=== PATIENT | male | born 1975 | race Caucasian/White ===

== ENCOUNTER 2016-12-27 22:52 | Observation (INO) | payer MEDICAID ==
[~2016-12-27] VITALS: Ht 177.8 cm; Wt 126.9 kg
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
--- NOTE | ~2016-12-27 | CON ---
PATIENT'S NAME: CRISTIAN SCHULTE [facility] AGE: 41 Y [address] ROOM: [facility] [place] [place], [place] [address] LOCATION: GPCU ADMIT DATE: 12/28/2016 Consultation DISCHARGE DATE: 12/29/2016 FAMILY PHYSICIAN: JOSE MARTIN FERNÁNDEZ MD ATTENDING PHYSICIAN: CHUCHO LEBRON co-signing physician 01/02/17 AO DATE OF CONSULTATION: 12/29/2016 REFERRING PHYSICIAN: Evonne Ang MD TIME AND DATE: 12/29/2016 at 12:45 p.m. CHIEF COMPLAINT: Unresponsive episode. HISTORY OF PRESENT ILLNESS: This is a 41-year-old male. History is obtained from the patient, his sister, and from the chart. He was playing with this daughter, getting ready to go to bed, watching television when he was observed to have stood up, he screamed, and then he was laid on the floor. Apparently, the patient was out about 20 minutes. EMS was called. His first memory is waking up in the ambulance. The chart says he was quite confused at that time. By the time he went to the ED, he was more alert and knowing the paramedics and those around him. Of note, he did have a lateral bites of his tongue. The patient had a previous event where he was at physical therapy and sitting with his sister when she was getting treatment. She heard him snoring and tried to wake him, but was unable to do so. [facility] and [facility] him pulseless and did do rounds of CPR on him. By the time EMS got there, he had carotid pulses, was transferred to the intensive care and intubated. He was given Narcan at that time without any response. His past medical history includes addiction issues with methamphetamine. He was recently admitted for anasarca with acute kidney failure, which was related to urinary retention, which is resolved. He does have an abnormal echocardiogram, which shows an EF of 55 with grade 1 diastolic dysfunction. He suffers from bipolar depression and anxiety. The patient states at the time of this incident, he was feeling well. REVIEW OF SYSTEMS: He denies any chest pain, shortness of breath, nausea, vomiting, diarrhea, or palpitations. He denies any headaches. Denies any head turning. Denies any dizziness. Denies any recent illness or travel. Denies any recent infections. Past medical history includes morbid obesity; bipolar disorder, which the PATIENT'S NAME: CRISTIAN SCHULTE [facility] AGE: 41 Y [address] ROOM: [id number] [place], [place] [address] LOCATION: GPCU ADMIT DATE: 12/28/2016 Consultation DISCHARGE DATE: 12/29/2016 FAMILY PHYSICIAN: JOSE MARTIN FERNÁNDEZ MD ATTENDING PHYSICIAN: CHUCHO LEBRON V patient sees a psychiatrist for; history of recent unresponsive episode, which was treated as a cardiac arrest; hypercholesterolemia; urinary retention; and per the patient he has a L5-S1 blow out on his MRI. He has sought advice for this, but Dr. Johns and Dr. Leal have refused the patient for a surgical option. Of note, the patient has gone cold turkey with many of his medications after his last hospitalization. He no longer takes his Xanax. He also has quit smoking. He has also quit taking his Seroquel. This was not at the advice of his psychiatrist, however, the patient just wanted to go cold turkey on these things. Regarding his medications, he does take tramadol regularly for his back pain. PAST SURGICAL HISTORY: Unremarkable. SOCIAL HISTORY: Significant for polysubstance abuse, that is distant. He was a pack-a-day smoker until he quit and he quit smoking after his last hospitalization. FAMILY HISTORY: Significant for seizures on both sides of the family. PHYSICAL EXAMINATION: VITAL SIGNS: His blood pressure is 150/70, heart rate 95, saturating 96% on room air, he is afebrile with respirations 16. GENERAL: Morbidly obese, middle-aged male, who appears anxious and fidgety. EYES: Pupils are equal and reactive to light and there is no nystagmus. ENT: No stridor. No lymphadenopathy. HEAD: Atraumatic and normocephalic. LUNGS: Clear to auscultation. HEART: Heart rate is regular with no murmurs, rubs, or gallops. ABDOMEN: Obese, soft, and nontender. NEUROLOGIC: Cranial nerves II through XII are intact. There is no focal deficits noted. The patient states he is about slightly weak on his extremities. His gait was observed and is normal gait. Slightly decreased muscle tone. DIAGNOSTIC DATA: MRI shows no infarct, hemorrhage, hydrocephalus, or mass in fact in short a normal MRI. His prolactin level was 5.2, however, this was drawn in a significant amount of time after the event. It is not a factor. He did have a negative CT/PE chest protocol also. ASSESSMENT AND PLAN: 1. Questionable seizure. The evidence supporting the seizure is his abrupt stoppage of his benzodiazepine, his tramadol ingestion, his lateral PATIENT'S NAME: CRISTIAN SCHULTE [facility] AGE: 41 Y [address] ROOM: [address] [address] LOCATION: GPCU ADMIT DATE: 12/28/2016 Consultation DISCHARGE DATE: 12/29/2016 FAMILY PHYSICIAN: JOSE MARTIN FERNÁNDEZ MD ATTENDING PHYSICIAN: CHUCHO LEBRON, and his family history of seizures. We will await the EEG reading to make a recommendation on starting the patient on an antiepileptic. 2. History of polysubstance abuse. The patient absolutely denies having used any substances and is supported by his sister. The patient and his sister were interviewed and asked appropriate questions. All questions were answered to the best my ability. The plan of care was coordinated with Dr. Caraballo. Thank you for this consult. VERITO LOMELI APRN FOR SHAR CARABALLO MD PP/modl /[id number] Corrrected co-signing physician 01/02/17 AO d: 12/29/16 1842 t: 01/10/17 1538, CONSULTATION REPORT
--- NOTE | ~2016-12-27 | NDGEN ---
PATIENT'S NAME: CRISTIAN SCHULTE [facility] AGE: 41 Y [address] ROOM: [address] [address] LOCATION: GPCU ADMIT DATE: 12/28/2016 Neurodiagnostics DISCHARGE DATE: 12/29/2016 FAMILY PHYSICIAN: Yuniel Bains MD ATTENDING PHYSICIAN: Romulo Lebron V PROCEDURE: ELECTROENCEPHALOGRAM DATE OF PROCEDURE: 12/29/2016 TYPE OF STUDY: EEG. TIME: 08:14 a.m. INDICATION: This is a 41-year-old male patient, who came in with a rule out of syncope versus seizure. General background rhythm remains constant throughout and is symmetrical and shows a 25-50 hertz alpha rhythm with a normal sinusoidal pattern that remained stable throughout the whole recording. Photic stimulation did not change the general background rhythm. There was no epileptiform features seen and no seizures were recorded. IMPRESSION: This is a normal EEG. MD [place] CHRISTENSEN/renettal /[id number] dtt: 01/10/17 1536 , SHAR HARRINGTON dtd: 12/30/16 1104
--- NOTE | ~2016-12-27 | ER ---
PATIENT'S NAME: CRISTIAN SCHULTE [facility] AGE: 41 Y [address] ROOM: [facility] [place] [place], [place] [address] [facility] ADMIT DATE: 12/28/2016 ER/Outpatient Report DISCHARGE DATE: FAMILY PHYSICIAN: JOSE MARTIN FERNÁNDEZ MD ATTENDING PHYSICIAN: CHUCHO LEBRON V Admission date and time documented in the medical record. I saw the patient at 2305 hours. CHIEF COMPLAINT: Acute mental status change and unresponsive episode. HISTORY OF PRESENT ILLNESS: This patient is a 41-year-old male, who about an hour prior to admission in the emergency room had a syncopal-type episode, became unresponsive. Got diaphoretic. After waking up, he was noted to have some blood in his mouth from biting his tongue. He was confused and had no memory of what had transpired. Brought to the emergency room by [facility] by ambulance for evaluation. He has no chest pain, no shortness of breath, little nauseated. He has some left shoulder pain, tongue pain. No headache. Eyes, ears, nose, throat, neck, or spine pain. No other extremity pain other than left shoulder. He was awake, responsive, was oriented, not confused, although he does not remember anything that happened tonight. No history of seizure disorder. He does have some bipolar problems with anxiety, depression, and panic disorder. He has had some recent heart issues with nonischemic cardiomyopathy. He had a cardiac cath about 2-3 weeks ago that had just minimal disease. No endocrine problems. He has had syncope prior. Some suicidal ideation in the past. No stroke or TIA. HOME MEDICATIONS: See attached medication list. ALLERGIES: NONE. SOCIAL HISTORY: The patient was smoking about a pack a day. He has not smoked for 2 weeks. He had problems with alcohol in the past. Nondrinker at this time. SIGNIFICANT PAST MEDICAL HISTORY: Atherosclerotic ischemic heart disease, coronary artery disease, hypertension, bipolar disorder with anxiety, depression, panic attacks. Past history of marijuana, meth abuse, illicit drug abuse, tobacco abuse. Nonischemic cardiomyopathy, COPD, headaches, degenerative disk disease, degenerative joint disease, osteoarthritis, suicidal ideation, chronic neck and back pain, PATIENT'S NAME: CRISTIAN SCHULTE [facility] AGE: 41 Y [address] ROOM: [id number] [place], [place] [address] [facility] ADMIT DATE: 12/28/2016 ER/Outpatient Report DISCHARGE DATE: FAMILY PHYSICIAN: JOSE MARTIN FERNÁNDEZ MD ATTENDING PHYSICIAN: CHUCHO LEBRON V syncope, and nephrolithiasis. OPERATIONS: Appendectomy, tonsillectomy, adenoidectomy, and left shoulder surgery. REVIEW OF SYSTEMS: All systems reviewed by me are negative with exception of those discussed in the history of present illness. PHYSICAL EXAMINATION: VITAL SIGNS: Temperature 99.3, tympanic; pulse 110, regular; respirations 18; blood pressure 179/85; O2 saturation on room air was 89%; Anand Coma Scale is 15. HEENT: Head: Normocephalic. No abrasion, contusion, laceration, swelling to scalp or face. Eyes: Extraocular muscles are intact. PERRL. Sclerae and conjunctivae are clear, nonicteric. Ears, Nose, Throat: Clear. Mucous membranes are moist. Teeth and jaw: Intact. The patient has a small laceration on the top of his tongue. No active bleeding at this time. NECK: No nuchal rigidity. No findings of adenopathy. No tenderness. SPINE: Nontender. No deformity. LUNGS: Clear. No rales, rhonchi, or wheezes. HEART: Regular. Pulses are palpable. The patient is little tachy and mildly tachypneic. ABDOMEN: Soft, nondistended, and nontender. Good bowel tones. No organomegaly or abnormal masses palpable. PELVIS: Stable and nontender. EXTREMITIES: He moves all 4 extremities. No peripheral edema, cyanosis, or deformity. Little bit of tenderness in the left shoulder, but no deformity. NEURO: Cranial nerves appear to be intact. No lateralizing signs. The patient is awake, alert, cooperative. Motor and sensory intact. SKIN: Clear. No skin eruptions or rash. LABORATORY DATA AND X-RAYS: CT scan of the head showed no intracranial bleed, midline shift, or mass effect. Chest x-ray showed no acute infiltrate or changes. We will review x- ray with the radiologist. EKG showed sinus rhythm, tachy. No acute ST elevation, ischemic change, or arrhythmia. CMS was normal. Magnesium was 2.5. Initial CPK was 433. Two-hour CPK was 396. Initial CK-MB was 4.2. Two- hour CK-MB was 4.2. Initial troponin was less than 0.04. Two-hour troponin was 0.045. D-dimer was 3.53. Venous pH was 7.34, white count was 7600, 55 segs, 25 lymphs, 16 monos, 4 eos, 1 baso. Hemoglobin was 14.8, hematocrit 44.7, and platelet count was 303,000. PTT was 27, pro time was 11.4 with an INR of 1.1. IMPRESSION: PATIENT'S NAME: CRISTIAN SCHULTE [facility] AGE: 41 Y [address] ROOM: [place] [address] LOCATION: GPCU ADMIT DATE: 12/28/2016 ER/Outpatient Report DISCHARGE DATE: FAMILY PHYSICIAN: JOSE MARTIN FERNÁNDEZ MD ATTENDING PHYSICIAN: CHUCHO LEBRON V 1. Episode of unresponsiveness, syncope type, etiology uncertain. He did bite his tongue, so it could have been a seizure activity. Could be an arrhythmia. The patient does have a history of atherosclerotic ischemic heart disease, coronary artery disease. 2. History of nonischemic cardiomyopathy. 3. Chronic obstructive pulmonary disease. 4. History of tobacco abuse. Illicit drug abuse. 5. Bipolar disorder with anxiety, depression. EMERGENCY DEPARTMENT COURSE: I did give the patient IV normal saline. I did try to get a CT scan of the chest with PE protocol, but there were some problems with the timing of the dye in the scan. So, it was inconclusive. DISPOSITION/FOLLOW-UP: PLAN: I did discuss the patient with Dr. Lebron, hospitalist. Dr. Lebron is coming to the emergency room to evaluate the patient. We will proceed on his recommendations. The patient will be admitted to PCU telemetry for further evaluation. Discussion ensued with the patient concerning my findings and recommendations, he understands. MD WALTER MORRELL/modl /[id number] d: 12/28/16629 t: 12/28/161811, OUTPATIENT REPORT
--- NOTE | ~2016-12-27 | HP ---
PATIENT'S NAME: CRISTIAN SCHULTE [facility] AGE: 41 Y [address] ROOM: [place] [address] LOCATION: GPCU ADMIT DATE: 12/28/2016 History & Physical DISCHARGE DATE: FAMILY PHYSICIAN: JOSE MARTIN FERNÁNDEZ MD ATTENDING PHYSICIAN: CHUCHO LEBRON V CHIEF COMPLAINT: Unresponsive episode. HISTORY OF PRESENT ILLNESS: The patient is a 41-year-old male. History is obtained from him as well as from the ER provider, but the witnesses to the event are not here. Apparently, he was at a baseline state of health earlier today, watching TV, when he was observed to have stood up, yelled, and then lost consciousness. Apparently, the patient was out for about 20 minutes and has no recollection of precipitating factors of the episode. His first memory is of when the paramedics arrived, at which point he does report being quite confused. Apparently, the witnesses did not observe any rhythmic motion, but the patient did bite his tongue. At this point, he is awake, alert, and comfortable, and volunteers no complaints. Of note, the patient has had a complicated recent medical course, where he was found to have volume overload as well as acute diastolic congestive heart failure. This was followed by an unresponsive episode where the patient actually received CPR. This prompted a cardiac evaluation and cardiac cath, which was unremarkable. The patient reports that over the last week, he has been at a baseline state of health. REVIEW OF SYSTEMS: He denies any chest pain, shortness of breath, nausea, vomiting, diarrhea, chest pain, or palpitations. All systems have been reviewed and negative aside from pertinent positives mentioned above. PAST MEDICAL HISTORY: Morbid obesity, a distant history of bipolar disorder for which the patient currently takes no medications, and history of recent unresponsive episode which was treated as a cardiac arrest, also history of hypercholesterolemia. PAST SURGICAL HISTORY: Unremarkable. PATIENT'S NAME: CRISTIAN SCHULTE [facility] AGE: 41 Y [address] ROOM: [place] [address] LOCATION: GPCU ADMIT DATE: 12/28/2016 History & Physical DISCHARGE DATE: FAMILY PHYSICIAN: JOSE MARTIN FERNÁNDEZ MD ATTENDING PHYSICIAN: KAGANAS,CHUCHO V SOCIAL HISTORY: Significant for polysubstance abuse that is distant and I do not believe any longer pertinent. Was a pack-a-day smoker until about a month ago, and did abuse alcohol, but has been clean for quite sometime. FAMILY HISTORY: Significant for seizures on both sides of the family. PHYSICAL EXAMINATION: VITAL SIGNS: Blood pressure 150/70, heart rate is 90s to 100s, saturating 96% on room air, afebrile, respirations 16. GENERAL: Appears morbidly obese, middle-aged male, in no acute distress. NEUROLOGICAL: Entirely nonfocal. EYES: Show pupils are equal and reactive to light and there is no nystagmus. ENT: Reveals no stridor. LYMPHATIC: Reveals no cervical lymphadenopathy. ENDOCRINE: Shows no thyromegaly. LUNGS: Clear to auscultation. HEART: Rate is regular with no appreciable murmurs, gallops, or rubs. ABDOMEN: Obese, soft, nontender. : No costovertebral angle tenderness. VASCULAR: 2+ pedal pulses. MUSCULOSKELETAL: Unremarkable. PSYCHIATRIC: Reveals appropriate mood, cognition, and affect. DIAGNOSTIC DATA: Studies performed in the ER are significant for a CT of his chest with contrast for PE protocol, which have a suboptimal bolus timing and was nondiagnostic. EKG shows sinus tachycardia at 160 beats per minute with incomplete right bundle-branch block. Studies performed in the ER are significant for pH 7.34. Unremarkable basic metabolic profile. CPK of 396. Troponin of 0.04. BNP 170. CBC is unremarkable. D-dimer is 3.53. ASSESSMENT AND PLAN: 1. This is a 41-year-old male, who will be admitted for observation with an unresponsive episode. Most likely, the inciting episode was a seizure. I am wondering if this is also related to his prior hospitalization when the patient was admitted as a "cardiac arrest". We will check the patient's prolactin, add it to labs drawn in the ER. We will check an MRI of his brain. We will get a Neurology consultation and an EEG. I believe the patient may benefit from a trial of antiepileptics, but we will defer to Neurology. 2. Mild cardiac enzyme elevation: I believe that his CPK is most likely elevated due to some mild rhabdo related to his seizure. I do not think his troponin elevations are quite significant, but we will trend them for PATIENT'S NAME: WENBURG, CRISTIAN D [facility] AGE: 41 Y [address] ROOM: [place] [address] [facility] ADMIT DATE: 12/28/2016 History & Physical DISCHARGE DATE: FAMILY PHYSICIAN: JOSE MARTIN FERNÁNDEZ MD ATTENDING PHYSICIAN: CHUCHO LEBRON set. 3. History of hypercholesterolemia: We will continue him on his Lipitor. 4. History of polysubstance abuse: The patient absolutely denies having used any substances, but we will check a UA just to be sure. Additional management will depend on clinical course. Time dedicated to this patient's encounter is 25 minutes. MD SYD WHYTE/mike /[id number] D: 542 T: 005 HISTORY & PHYSICAL
--- NOTE | ~2016-12-27 | DS ---
PATIENT'S NAME: CRISTIAN SCHULTE [facility] AGE: 41 Y [address] ROOM: [facility] [place], [place] [address] LOCATION: GPCU ADMIT DATE: 12/28/2016 Discharge Summary DISCHARGE DATE: 12/29/2016 FAMILY PHYSICIAN: Yuniel Bains MD ATTENDING PHYSICIAN: Romulo Lebron V FINAL DIAGNOSES: 1. Unresponsive episode felt to be probable seizure. 2. Elevated troponin. 3. Acute hypoxic respiratory failure. 4. Stomatitis. 5. Chest wall pain. Please see the history and physical dictated by Dr. Lebron for details of admission. LABORATORY DATA: On admission, sodium was 138, potassium 4, chloride 102, CO2 of 23, BUN 9, creatinine 1.1. Lipase 53. CKs were 433, 396, 470 respectively. Troponins were was less than 0.04, 0.045, 0.044. ProBNP was 170. Prolactin was 10.4 on admission, followup was 5.2. White blood cell count 7.6, hemoglobin 14.8, hematocrit 44.7, platelet count 303. D-dimer 3.53. Protime 11.4, INR 1.1. RADIOLOGIC STUDIES: CT scan of the head for syncope was normal. PE protocol chest done due to shortness of breath and elevated D-dimer did not show any evidence of a PE. MRI of the brain was normal. HOSPITAL COURSE: The patient was admitted to the hospital with an unresponsive episode. The thought was since he had a recent negative cardiac evaluation that this may represent seizures. An MRI of the brain was obtained and a prolactin level was obtained. Dr. Caraballo was asked to see him from a neurologic standpoint. His cardiac enzymes did jump a little bit, but it was thought that the troponin may be elevated as a result of his seizure. He did bite his tongue and was having significant pain associated with that and he was put on Magic Mouthwash. He also complained of chest wall pain for which he was given [place]. His medication list was reviewed and he was on Ultram at home, this was stopped because of the association. Neurology did see him and felt that we could place him on Keppra 500 mg twice a day. The patient was felt to be stable for discharge to home. He is to follow up with Dr. Bains, his neurologist in 3 to 5 days, then nurse coordinator from the Hospitalist Service will contact him and assist with setting up a followup with the neurologist. DISCHARGE MEDICATIONS: 1. Aspirin 81 mg daily. 2. Lipitor 40 mg at bedtime. PATIENT'S NAME: CRISTIAN SCHULTE [facility] AGE: 41 Y [address] ROOM: [place] [address] LOCATION: GPCU ADMIT DATE: 12/28/2016 Discharge Summary DISCHARGE DATE: 12/29/2016 FAMILY PHYSICIAN: Yuniel Bains MD ATTENDING PHYSICIAN: Romulo Lebron V 3. Keppra 500 mg twice daily, which is new. 4. Seroquel 200 mg twice daily. 5. Restoril 30 mg at bedtime as needed. 6. Magic Mouthwash 5 mL four times daily. 7. Percocet 10/325 one every 6 hours as needed. 8. [place] 5/325 one every 4 hours as needed. 9. Aldactazide 20/25 one daily. 10. Xanax 1 mg every 6 hours as needed for anxiety. 11. Proventil inhaled 2 puffs every 4 hours as needed. 12. Tums 2 tablets every 6 hours as needed. PROGNOSIS: Overall prognosis at discharge was good. BINA BUCIO MD LAW/modl /[id number] CC: Yuniel Bains MD d: 12/30/16 0502 t: 01/04/17 1043, DISCHARGE SUMMARY
[~2016-12-27 22:52] MED LIST: ASPIRIN LO-DOSE81 MG PO; ASPIRIN325 MG PO; ATORVASTATIN CA40 MG PO; AUGMENTIN 875-1 EACH PO; COLACE100 MG PO; ELAVIL10 MG PO; FLOMAX0.4 MG PO; K-TAB OR KLOR-10 MEQ PO; KLONOPIN1 MG PO; LASIX40 MG PO; NEOSPORIN1 PKT TOP; NEURONTIN100 MG PO; NICODERM CQ1 EAC1 TRANS; NICODERM CQ1 EAC2 TRANS; NICODERM/HABITR21 MG TRANS; PERCOCET 5-3251 EACH PO; PROVENTIL OR V6.7 GM INH; RESTORIL30 MG PO; SEROQUEL100 MG PO; SPIRIVA HANDIHA1 KIT INH; ULTRAM50 MG PO; VASOTEC10 MG PO; WELLBUTRIN XL150 M1 PO; XANAX1 MG PO; ZOLOFT100 M1 PO
[2016-12-27 23:11] LABS: BASOPHIL % 0.5 %; EOSINOPHIL # 0.3 K/uL (0.0-0.5); EOSINOPHIL % 3.6 %; HEMATOCRIT 44.7 % (37.0-53.0); HEMOGLOBIN 14.8 g/dL (12.0-17.0); IMMATURE GRANULOCYTE # 0.1 K/uL (0.0-0.3); IMMATURE GRANULOCYTE % 0.9 %; LYMPHOCYTE # 1.9 K/uL (0.8-4.0); LYMPHOCYTE % 24.5 %; MCH 28.8 pg (27.0-34.0); MCHC 33.1 gm/dL (32.0-36.5); MONOCYTE # 1.2 K/uL (0.0-1.0); MONOCYTE % 15.7 %; MPV 9.4 fl (9.4-12.4); NEUTROPHIL # (ANC) 4.2 K/uL (1.4-9.0); NEUTROPHIL % 54.8 %; NRBC % 0 /100WBC (0-0.00); PLATELET COUNT 303 K/uL (150-450); RBC 5.14 M/uL (4.00-6.00); RDW-CV 12.7 % (11.9-14.6); WBC 7.6 K/uL (4.0-11.0)
[2016-12-27 23:20] LABS: INR - (THERAPEUTIC) 1.1 (0.9-1.1); PROTIME 11.4 SECONDS (9.6-11.1); PTT 27 SECONDS (25-32)
[2016-12-27 23:28] LABS: ALBUMIN 4.3 gm/dL (3.5-5.0); ALK PHOS 75 IU/L (33-138); ALT 22 IU/L (12-78); AST 28 IU/L (10-40); BLOOD UREA NITROGEN 9 mg/dL (6-24); CALCIUM 8.6 mg/dL (8.5-10.5); CHLORIDE 102 mMol/L (96-110); CO2 23 mMol/L (22-32); CPK 433 IU/L (35-332); CREATININE 1.1 mg/dL (0.6-1.3); ESTIMATED GFR (MDRD EQUATION) > 60; MAGNESIUM 2.5 mg/dL (1.3-2.6); SODIUM 138 mMol/L (135-145); TOTAL PROTEIN 7.3 g/dL (6.0-8.4)
[2016-12-27 23:29] LABS: TOTAL BILIRUBIN 0.7 mg/dL (0.0-1.5)
[2016-12-28 04:38] LABS: BARBITURATE NEGATIVE (NEGATIVE); COCAINE NEGATIVE (NEGATIVE); OPIATES NEGATIVE (NEGATIVE)
[2016-12-28 04:40] LABS: AMPHETAMINE NEGATIVE (NEGATIVE)
[2016-12-28] MEDS ORDERED: PERCOCET 10-321 EACH PO (08:04)
[2016-12-28] MEDS ORDERED: ALDACTAZIDE 251 EACH PO (08:04)
[2016-12-28] MEDS ORDERED: XANAX1 MG PO (08:06)
[2016-12-28] MEDS ORDERED: RESTORIL30 MG PO (08:06)
[2016-12-28] MEDS ORDERED: SEROQUEL100 MG PO (08:06)
[2016-12-28] MEDS ORDERED: PROVENTIL OR V6.7 GM INH (08:07)
[2016-12-28] MEDS ORDERED: HYDROCODON-ACE1 EAC4 PO (08:07)
[2016-12-28] MEDS ORDERED: TUMS REGULAR ST1 TAB PO (08:07)
[2016-12-29] MEDS ORDERED: KEPPRA500 MG PO (17:14)
[2016-12-29] MEDS ORDERED: MAG119MX PO (17:17)
== END 2016-12-29 18:45 | disposition disaster alternative care site (69) ==
LOC: GMED 22:52 → GPCU 12-28 02:13
PROVIDERS: Emergency Medicine; ADMIT Internal Medicine
DX: R56.9 Unspecified convulsions (principal); J96.01 Acute respiratory failure with hypoxia; K12.1 Other forms of stomatitis; R07.89 Other chest pain; R79.89 Other specified abnormal findings of blood chemistry; Z79.899 Other long term (current) drug therapy; Z87.891 Personal history of nicotine dependence; Z82.0 Family history of epilepsy and other diseases of the nervous system
CPT/HCPCS: G0378; J2405; J7030; Q9967